=== PATIENT | female | born 1960 | race Caucasian/White ===

== ENCOUNTER 2024-02-12 22:35 | Emergency (ER) | payer SELFPAY ==
[2024-02-12 22:37] VITALS: BP 101/73
--- NOTE | 2024-02-13 01:44 | ED.GENMED ---
History of Present Illness
General
Chief Complaint: Fall
Source: patient
Time Seen by Provider: 02/13/24 01:20
History of Present Illness
History of Present Illness:
63-year-old female presents to the emergency room complaining of a slip and fall with a head injury. Patient states she got out of the shower and slipped on the wet floor. She attempted to steady herself by grabbing onto the towel rack but this
became disconnected prompting her to fall backwards. She did strike the back of her head and her left elbow. No loss of consciousness but the patient did feel dazed and had a bit of a headache. Headache is improved. No nausea or vomiting. No
focal weakness.
Past History
Past History
ED Past Medical History: Hypothyroidism and Other
ED Past Surgical History: Urological (lithotripsy)
Social History
Tobacco: Former smoker
Alcohol: None
Drug: None
Phy Exam
Physical Exam
Physical Exam:
General: Awake, Alert, Oriented X3. No acute distress.
Vitals: unremarkable
Head: Small occipital hematoma
Eyes: Pupils equal, EOMI
Throat: Airway intact, no exudates
Neck: Trachea midline
Lungs: Clear and equal b/l
Heart: Regular rate, no murmurs
Abd: Soft, Nontender, No pulsatile mass
Neuro: Nonfocal
Skin: Warm, dry, no rash
Extremities: pulses equal b/l, no edema. Mild tenderness palpation over the distal humerus and olecranon. Range of motion intact.
Course
Orders/Labs/Results
Orders:
Orders
02/12/24 22:42
Elbow, Left [CR Elbow - Left Min 3 Views ] Urgent
Comment:
Reason For Exam: fall
02/12/24 22:[address] [CT Head W/o Iv Contrast] Urgent
Comment:
Reason For Exam: fall
02/12/24 22:47
Cervical Collar- Treatment ONCE
Collar Type: Hard Cervical Collar
Comment: placed prior to arrival by EMS
Cervical Spine 4 or 5 Vw [CR Cervical Spine 4 Or 5 Vw] Urgent
Comment:
Reason For Exam: S/P fall
02/12/24 23:45
CT Cervical Spine W/o Iv Contr Urgent
Comment:
Reason For Exam: fall
02/13/24 02:23
Acetaminophen [Tylenol] 1,000 mg .ROUTE .STK-MED ONE
02/13/24 02:24
Acetaminophen [Tylenol] 1,000 mg PO NOW STA
Acetaminophen [Tylenol] 1,000 mg PO NOW STA
Vital Signs
Initial and Last Documented VS:
Initial Vital Signs
Temp Pulse Resp BP Pulse Ox
97.8 F 65 16 101/73 98
02/12/24 22:37 02/12/24 22:37 02/12/24 22:37 02/12/24 22:37 02/12/24 22:37
Last Documented Vital Signs
Temp Pulse Resp BP Pulse Ox
97.8 F 65 16 101/73 98
02/12/24 22:37 02/12/24 22:37 02/12/24 22:37 02/12/24 22:37 02/12/24 22:37
MDM/Problems Addressed
Differential Diagnosis Includes:
Subdural, concussion, elbow fracture, elbow contusion
MDM/Problems Addressed:
CT head and neck is unremarkable. Elbow shows no fracture on my review. Patient stable for discharge home. Tylenol/Motrin for headache.
*Radiology
Radiology exam reviewed: preliminary read by ED provider (No fracture noted on my review of the patient's elbow and cervical spine x-ray.)
*Pulse Oximetry
Patient hypoxic: no
*Critical Care Note
Total Time (30-74mins, 75-104mins- exclusive of procedures): Not Applicable
ED Attending Note
-
Portions of this chart may have been created with voice recognition software.� Occasional wrong word or��sound alike� substitutions may have occurred due to the inherent limitations of voice recognition software.
Discharge Plan
Departure
Patient Disposition: Home (Routine Discharge)
Date of Disposition: 02/13/24
Time of Disposition: 02:24
Patient with high blood pressure during this ER visit?: No
Condition: Good
Discharge Problem:
Head injury, Contusion of elbow
Instructions: Head Injury in Adults (DC), Contusion (DC)
Prescriptions:
No Action
levothyroxine [Synthroid] 25 mcg Tablet
62.5 mcg PO DAILY
garlic 100 mg Tablet
100 mg PO DAILY
vitamin B complex Capsule
1 cap PO DAILY
peppermint oil 50 mg Capsule,Delayed Release(Dr/Ec)
50 mg PO DAILY
oregano oil-flaxseed oil 50-25 mg Capsule
1 cap PO DAILY
Holy Basil
1 cap PO DAILY
Spirulina Capsules
1 cap PO DAILY
melatonin 10 mg Tablet
10 mg PO HS
Senna Plus 8.6-50 mg Capsule
2 cap PO HS PRN (Reason: constipation)
amoxicillin-pot clavulanate 875-125 mg Tablet
1 tab PO Q12 Qty: 20 0RF
peg 3350-electrolytes [Golytely] 236-22.74-6.74 -5.86 gram Recon Soln
1 ml PO PRE OP PRN (Reason: pre op)
quercetin 500 mg Capsule
500 mg PO PRN PRN (Reason: sickness)
Milk of Magnesia
2 tbsp PO PRE OP PRN (Reason: pre op)
bile doryy-ixsf-gxib-phenolpth
1 tab PO DAILY
olive leaf extract
1 tab PO DAILY
Fleet Enema 19-7 gram/118 mL Enema
118 ml NH ONCE PRN (Reason: pre op)
magnesium citrate
1 tab PO PRN PRN (Reason: constiaption)
acetaminophen [acetaminophen] 325 mg tablet
650 mg PO Q6HPRN PRN (Reason: mild pain) Qty: 14 0RF
ibuprofen 200 mg tablet
400 - 600 mg PO Q6HPRN PRN (Reason: moderate pain) Qty: 1 0RF
oxycodone 5 mg tablet
5 mg PO Q6HPRN PRN (Reason: breakthrough/severe pain) Qty: 8 0RF
Interventions
Interventions:
*Risk Screen - Suicide Last Done: 02/12/24 22:37
*General Assessment Last Done: 02/12/24 22:37
*Neglect/Abuse Screening Last Done: 02/13/24 01:13
ED- Fall Risk Assessment Last Done: 02/13/24 01:31
*ED COVID-19 Vaccine History Last Done: 02/12/24 22:37
ED-Musculoskeletal Assessment Last Done: 02/13/24 01:12
ED- Neurological Assessment Last Done: 02/13/24 01:12
ED-Skin Assessment Last Done: 02/13/24 01:12
Discharge Date and Time
Print Language: PANAMANIAN
[2024-02-13] MEDS: TYLENOL 1000 MG PO (02:24)
[2024-02-13 02:46] VITALS: BP 116/74
== END 2024-02-13 02:47 | disposition home or self-care (01) ==
LOC: EMR 22:35
PROVIDERS: EMERGENCY PHYSICIAN Emergency Medicine
DX: S00.03XA Contusion of scalp, initial encounter (principal); S50.02XA Contusion of left elbow, initial encounter; W01.0XXA Fall on same level from slipping, tripping and stumbling without subsequent striking against object, initial encounter; E03.9 Hypothyroidism, unspecified; Z87.891 Personal history of nicotine dependence
CPT/HCPCS: 99284; 70450; 72050; 72125; 73080

== ENCOUNTER → 2024-12-13 15:11 | Outpatient (REF) | payer SELFPAY | LOC: REG 15:11 | PROVIDERS: ATTENDING PHYSICIAN Nurse Practitioner Family | DX: J01.91 Acute recurrent sinusitis, unspecified (principal); D83.9 Common variable immunodeficiency, unspecified | CPT/HCPCS: 36415; 82784 ==